=== PATIENT | female | born 1975 | race Caucasian/White ===

== ENCOUNTER 2016-09-26 07:00 | Day surgery (SDC) | payer OTHER ==
[2016-09-26] MEDS ORDERED: fentaNYL 100 MCG/2 ML INJ ONE (07:24)
[2016-09-26] MEDS ORDERED: MIDAZOLAM 2 MG/2 ML VIAL ONE (07:26)
[2016-09-26] MEDS ORDERED: PROMETHAZINE HCL 25 MG/ML INJ ONE (08:01)
[2016-09-26] MEDS ORDERED: BUPIVACAINE 0.5% 30 ML SDV ONE (08:50)
[2016-09-26] MEDS ORDERED: LIDOCAINE 1% 30 ML SDV ONE (08:50)
[2016-09-26] MEDS ORDERED: BUPIVACAINE 0.25% 30 ML SDV ONE (08:51)
[2016-09-26] MEDS ORDERED: ONDANSETRON 4 MG/2 ML VIAL ONE (09:10)
[2016-09-26] MEDS ORDERED: oxyCODONE IR 5 MG TAB PO PRN (09:39)
[2016-09-26] MEDS ORDERED: ONDANSETRON 4 MG/2 ML VIAL IVP PRN (09:40)
[2016-09-26] MEDS ORDERED: ACETAMINOPHEN 325 MG TAB PO PRN (09:40)
[2016-09-29 12:11] LABS: FINAL DIAGNOSIS See Comments; MICROSCOPIC DESCRIPTION See Comments; SPECIAL STUDIES See Comments
[2016-10-03 17:12] LABS: BANDING METHODS See Comments; INTERPRETATION See Comments
== END 2016-09-26 10:25 | disposition home or self-care (01) ==
LOC: FIMAGING 07:00
PROVIDERS: ATTEND Internal Medicine Hematology & Oncology
PROC: 07DR3ZX Extraction of Iliac Bone Marrow, Percutaneous Approach, Diagnostic (ICD-10-PCS; principal; 2016-09-26 09:15)
DX: C92.10 Chronic myeloid leukemia, BCR/ABL-positive, not having achieved remission (principal)
CPT/HCPCS: 85060-90; 88184-90; 88185-91; 88237-90; 88262-90; J2250; J2405; J2550; J3010

== ENCOUNTER 2017-01-11 09:59 | Inpatient (IN) | payer OTHER ==
--- NOTE | 2017-01-11 10:27 | CPEKG ---
Heart Rate: 84 RR Interval: 714 P-R Interval: 180 QRSD Interval: 82 QT Interval: 384 QTC Interval: 454 P [place]: 24 QRS [place]: 15 T Wave [place]: 36 EKG Severity - NORMAL ECG - EKG Impression: SINUS RHYTHM Electronically Signed By: Kavin Mensah 11-Jan-2017 15:33:43
[2017-01-11] MEDS ORDERED: HYDROmorphONE/DILAUDID 1 MG/ML SYR IVP ONE ×2 (11:09→13:35)
[2017-01-11 11:13] LABS: % IMMATURE GRANULYOCYTES 0.5 % (0.0-1.1); ABSOLUTE IMMATURE GRANULOCYTES 0.03 10^3/uL (0.00-0.10); ADD DIFF? NO; ADD MORPH? NO; ADD SCAN? NO; ATYPICAL LYMPHOCYTE FLAG 10 (0-99); FRAGMENT RBC FLAG 0 (0-99); HEMATOCRIT 36.1 % (38.0-47.0); HEMOGLOBIN 12.3 g/dL (12.6-16.3); LEFT SHIFT FLG 0 (0-99); LIPEMIA HEMOLYSIS FLAG 90 (0-99); MEAN CELL HEMOGLOBIN 31.3 pg (27.9-34.1); MEAN CELL HEMOGLOBIN CONCENTR. 34.1 g/dL (32.4-36.7); MEAN CELL VOLUME 91.9 fL (81.5-99.8); MEAN PLATELET VOLUME 9.6 fL (8.7-11.7); PLATELET CLUMPS FLAG 0 (0-99); PLATELET COUNT 159 10^3/uL (150-400); RED BLOOD CELL COUNT 3.93 10^6/uL (4.18-5.33); RED CELL DISTRIBUTION WIDTH 14.6 % (11.5-15.2)
[2017-01-11] MEDS ORDERED: ONDANSETRON 4 MG/2 ML VIAL ONE (11:16)
[2017-01-11] MEDS ORDERED: ONDANSETRON 4 MG/2 ML VIAL IVP ONE (11:17)
[2017-01-11 11:20] LABS: ANION GAP 10 mEq/L (8-16); CALCIUM 8.7 mg/dL (8.5-10.4); CARBON DIOXIDE 20 mEq/l (22-31); CHLORIDE 111 mEq/L (97-110); CREATININE 0.7 mg/dL (0.6-1.0); GLOMERULAR FILTRATION RATE > 60; GLUCOSE 90 mg/dL (70-100); SODIUM 141 mEq/L (134-144)
[2017-01-11] MEDS ORDERED: IOPAMIDOL (ISOVUE 370) 100 ML BTL IV ONE (11:54)
[2017-01-11 13:30] LABS: ALBUMIN 3.6 g/dL (3.5-5.0); BILIRUBIN,TOTAL 1.3 mg/dL (0.1-1.4); BILIRUBIN-CONJUGATED 0.3 mg/dL (0.0-0.5); TOTAL PROTEIN 6.7 g/dL (6.3-8.2)
[2017-01-11] MEDS ORDERED: ALPRAZolam 0.5 MG TAB PO PRN (14:22)
[2017-01-11] MEDS ORDERED: FUROSEMIDE 40 MG/4 ML VIAL IVP ONE ×2 (14:22→20:24)
[2017-01-11] MEDS ORDERED: ACETAMINOPHEN 325 MG TAB PO PRN (14:25)
[2017-01-11] MEDS ORDERED: ONDANSETRON 4 MG/2 ML VIAL IVP PRN (14:25)
[2017-01-11] MEDS ORDERED: ONDANSETRON DISINTEGRATING 4 MG TAB PO PRN (14:25)
--- NOTE | 2017-01-11 14:28 | EDPHY ---
H & P Time Seen by Provider: 01/11/17 10:50 HPI/ROS: CHIEF COMPLAINT: Shortness of breath, abdominal pain HISTORY OF PRESENT ILLNESS: 41-year-old female presents to the emergency department complaining of shortness of breath and upper abdominal pain that began 2 days ago. 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 Hills. The patient noted mild symptoms starting on Thursday. She states that they were much worse yesterday. She has a prescription for Lasix and took extra 20 mg of Lasix yesterday and today without relief. She notes that she does have good urine output with this medication. She has not noticed any fevers or chills. No cough. No back pain. The patient feels extremely anxious. No rash. No reported trauma. Normal bowel movement yesterday. History of partial hysterectomy REVIEW OF SYSTEMS: Constitutional: No fever, no chills. Eyes: No double or blurry vision. ENT: No sore throat. Respiratory: Shortness of breath, no cough Cardiac: No chest pain. Gastrointestinal: Abdominal pain as above. No vomiting or diarrhea Genitourinary: No dysuria. Musculoskeletal: No neck or back pain. Skin: No rashes. Neurological: No headache. Past Medical/Surgical History: CML, anxiety, depression, back surgery, partial hysterectomy Social History: . Works as a Pharmacist Smoking Status: Never smoked Physical Exam: General Appearance: Alert, no distress. Afebrile. Eyes: Pupils equal and round. Extraocular motions are all intact. ENT: Mouth: Mucous membranes moist. Respiratory: No wheezing, rhonchi, or rales, lungs are clear to auscultation. Cardiovascular: Regular rate and rhythm. Gastrointestinal: Abdomen is obese and soft. She has tenderness with palpation in the left and the right upper quadrant. Some mild tenderness in the epigastric area as well. There is no rebound, guarding or masses noted. No CVA tenderness bilaterally. Neurological: Alert and oriented x 3, cranial nerves II through XII grossly intact Skin: Warm and dry, no rashes. Musculoskeletal: Nontender to palpate along the cervical, thoracic or lumbar spine. Neck is supple. Extremities: Full range of motion and no peripheral edema. Psychiatric: Patient is oriented X 3, there is no agitation. Constitutional: Initial Vital Signs Temperature (C) 36.8 C 01/11/17 10:01 Heart Rate 84 01/11/17 10:01 Respiratory Rate 16 01/11/17 10:01 Blood Pressure 158/92 H 01/11/17 10:01 O2 Sat (%) 97 01/11/17 10:01 O2 Delivery Mode Nasal Cannula O2 (L/minute) 3 Allergies/Adverse Reactions: No Allergies [NKA] Allergy (Verified 06/12/13 09:41) Home Medications: Medication Instructions Recorded DULoxetine [Cymbalta 60 MG (*)] 60 mg PO DAILY06 04/30/12 Liothyronine Sodium [Cytomel 5 mcg 5 mcg PO DAILY06 04/30/12 (*)] Canagliflozin [Invokana] 100 mg PO DAILY 09/25/16 Levothyroxine [Synthroid 150 mcg 150 mcg PO DAILY06 09/25/16 (*)] oxyCODONE IR [Oxycodone Ir (*)] 5 mg PO QID PRN 09/25/16 ALPRAZolam [Xanax 0.5 MG (*)] 0.5 mg PO PRN PRN 01/11/17 Dasatinib [Sprycel] 100 mg PO DAILY 01/11/17 Furosemide [Lasix 20 MG (*)] 20 mg PO DAILY 01/11/17 Herbals/Supplements -Info Only 1 ea PO DAILY 01/11/17 Medical Decision Making - Diagnostics Imaging Results: Imaging Impressions Abdomen CT 01/11/17 11:20 Impression: 1. Bilateral pleural effusions, with bibasilar areas of compressive subsegmental atelectasis. There are also areas of bilateral groundglass attenuation, which may represent alveolar edema consistent with fluid overload- CHF. The possibility of underlying inflammatory or infectious pneumonitis cannot be excluded. 2. There is no CT evidence of pulmonary artery thromboemboli. 3. There is some tiny subpleural nodules, as above indicated. These should be reevaluated in 6 months in this patient with CML. CONTRAST-ENHANCED CT SCAN OF THE ABDOMEN: The liver is enlarged, measuring 20.9 cm cephalocaudal diameter and there is some mild generalized steatosis. There is no focal hepatic mass. Numerous gallstones are present within the gallbladder , and there is trace pericholecystic fluid. The spleen is enlarged, measuring 14.7 x 6.1 x 13.8 cm. There is no focal splenic lesion. The pancreatic contour is normal. The adrenal glands are normal. There is bilateral symmetrical renal function. There is no hydronephrosis or perinephric inflammation. The abdominal aorta and the IVC are normal in caliber. The splenic vein, superior mesenteric vein, and the main portal vein are patent. There is no free air. There is no pathologically-enlarged retroperitoneal or mesenteric adenopathy. Moderate obesity is noted. There is mild constipation. There is no abnormal small bowel dilatation. CONTRAST-ENHANCED CT SCAN OF THE PELVIS: There is a 3.5 x 3.2 x 3.3 cm left ovarian cyst with a Hounsfield unit measurement of 1. There is some free fluid in the pelvic cul-de-sac. The uterus is absent. The urinary bladder is mildly distended. There is no adenopathy. Skeletal System: There is no osteolytic or blastic lesion. The vertebral body heights are maintained. Impression: 1. Hepatosplenomegaly. 2. Cholelithiasis with trace pericholecystic fluid, and no bile duct dilatation. 3. There is a 3.5 cm left ovarian cyst with some free fluid in the pelvic cul-de -sac. 4. Status post hysterectomy. Findings were discussed with HARSHAL MILLS PA-C at 12:52, on 01/11/2017. Chest/Thorax CTA 01/11/17 11:20 Impression: 1. Bilateral pleural effusions, with bibasilar areas of compressive subsegmental atelectasis. There are also areas of bilateral groundglass attenuation, which may represent alveolar edema consistent with fluid overload- CHF. The possibility of underlying inflammatory or infectious pneumonitis cannot be excluded. 2. There is no CT evidence of pulmonary artery thromboemboli. 3. There is some tiny subpleural nodules, as above indicated. These should be reevaluated in 6 months in this patient with CML. CONTRAST-ENHANCED CT SCAN OF THE ABDOMEN: The liver is enlarged, measuring 20.9 cm cephalocaudal diameter and there is some mild generalized steatosis. There is no focal hepatic mass. Numerous gallstones are present within the gallbladder , and there is trace pericholecystic fluid. The spleen is enlarged, measuring 14.7 x 6.1 x 13.8 cm. There is no focal splenic lesion. The pancreatic contour is normal. The adrenal glands are normal. There is bilateral symmetrical renal function. There is no hydronephrosis or perinephric inflammation. The abdominal aorta and the IVC are normal in caliber. The splenic vein, superior mesenteric vein, and the main portal vein are patent. There is no free air. There is no pathologically-enlarged retroperitoneal or mesenteric adenopathy. Moderate obesity is noted. There is mild constipation. There is no abnormal small bowel dilatation. CONTRAST-ENHANCED CT SCAN OF THE PELVIS: There is a 3.5 x 3.2 x 3.3 cm left ovarian cyst with a Hounsfield unit measurement of 1. There is some free fluid in the pelvic cul-de-sac. The uterus is absent. The urinary bladder is mildly distended. There is no adenopathy. Skeletal System: There is no osteolytic or blastic lesion. The vertebral body heights are maintained. Impression: 1. Hepatosplenomegaly. 2. Cholelithiasis with trace pericholecystic fluid, and no bile duct dilatation. 3. There is a 3.5 cm left ovarian cyst with some free fluid in the pelvic cul-de -sac. 4. Status post hysterectomy. Findings were discussed with HARSHAL MILLS PA-C at 12:52, on 01/11/2017. Imaging: Discussed imaging studies w/ informal waiter/waitress Radiologist ED Course/Re-evaluation: 41-year-old female with a history of CML presents to the emergency department feeling short of breath and complaining of upper abdominal pain. I explained to the patient that I was concerned about possible pulmonary embolism. I discussed the pros and cons of CT imaging of her chest including radiation exposure the patient agrees. Given her history of CML as well as her abdominal pain, I was concerned about possible hepatosplenomegaly. CT imaging of the abdomen and pelvis was also ordered. CT pulmonary angiogram reveals no evidence of pulmonary embolism. She does have bilateral pleural effusions likely related to fluid overload. CT scan of the abdomen pelvis with IV contrast reveals enlarged liver and spleen. No free fluid in the pelvis. She does have a 3 and 0.5 cm left ovarian cyst. Enlarged lymph nodes are noted. Radiologist recommends follow-up CT scan in 6 months. This was explained to the patient. The case was discussed with Dr. Kavin Mensah, supervising physician, who did not directly evaluate the patient but agrees with treatment and plan. Patient will be admitted to cancer care floor by Dr. Ángel Dyer. Patient was given 60 mg of IV Lasix in the emergency department. Differential Diagnosis: Shortness of breath including but not limited to pulmonary infectious process, COPD, asthma, pulmonary embolus and congestive heart failure. - Data Points Laboratory Results: Laboratory Results 01/11/17 10:20 01/11/17 10:20 01/11/17 01/11/17 01/11/17 11:10 10:20 10:20 WBC RBC Hgb POC Hgb 12.2 gm/dL L gm/dL (12.6-16.3) Hct POC Hct 36 % L % (38-47) MCV MCH MCHC RDW Plt Count MPV Neut % (Auto) Lymph % (Auto) [place] % (Auto) Eos % (Auto) Baso % (Auto) Nucleat RBC Rel Count Absolute Neuts (auto) Absolute Lymphs (auto) Absolute Monos (auto) Absolute Eos (auto) Absolute Basos (auto) Absolute Nucleated RBC Immature Gran % Immature Gran # POC Sodium 141 mEq/L mEq/L (134-144) Sodium 141 mEq/L mEq/L (134-144) POC Potassium 4.4 mEq/L mEq/L (3.3-5.0) Potassium 4.0 mEq/L mEq/L (3.5-5.2) POC Chloride 106 mEq/L mEq/L (97-110) Chloride 111 mEq/L H mEq/L (97-110) Carbon Dioxide 20 mEq/l L mEq/l (22-31) Anion Gap 10 mEq/L mEq/L (8-16) POC BUN 15 mg/dL mg/dL (7-23) BUN 14 mg/dL mg/dL (7-23) Creatinine 0.7 mg/dL mg/dL (0.6-1.0) POC Creatinine 0.6 mg/dL mg/dL (0.6-1.0) Estimated GFR > 60 Glucose 90 mg/dL mg/dL (70-100) POC Glucose 86 mg/dL mg/dL (70-100) Calcium 8.7 mg/dL mg/dL (8.5-10.4) Total Bilirubin 1.3 mg/dL mg/dL (0.1-1.4) Conjugated Bilirubin 0.3 mg/dL mg/dL (0.0-0.5) Unconjugated Bilirubin 1.0 mg/dL mg/dL (0.0-1.1) AST 23 IU/L IU/L (14-46) ALT 29 IU/L IU/L (9-52) Alkaline Phosphatase 72 IU/L IU/L (38-126) Total Protein 6.7 g/dL g/dL (6.3-8.2) Albumin 3.6 g/dL g/dL (3.5-5.0) Lipase 59.0 IU/L IU/L (23-300) 01/11/17 10:20 WBC 5.78 10^3/uL 10^3/uL (3.80-9.50) RBC 3.93 10^6/uL L 10^6/uL (4.18-5.33) Hgb 12.3 g/dL L g/dL (12.6-16.3) POC Hgb Hct 36.1 % L % (38.0-47.0) POC Hct MCV 91.9 fL fL (81.5-99.8) MCH 31.3 pg pg (27.9-34.1) MCHC 34.1 g/dL g/dL (32.4-36.7) RDW 14.6 % % (11.5-15.2) Plt Count 159 10^3/uL 10^3/uL (150-400) MPV 9.6 fL fL (8.7-11.7) Neut % (Auto) 77.8 % H % (39.3-74.2) Lymph % (Auto) 15.2 % % (15.0-45.0) [place] % (Auto) 5.0 % % (4.5-13.0) Eos % (Auto) 1.2 % % (0.6-7.6) Baso % (Auto) 0.3 % % (0.3-1.7) Nucleat RBC Rel Count 0.0 % % (0.0-0.2) Absolute Neuts (auto) 4.49 10^3/uL 10^3/uL (1.70-6.50) Absolute Lymphs (auto) 0.88 10^3/uL L 10^3/uL (1.00-3.00) Absolute Monos (auto) 0.29 10^3/uL L 10^3/uL (0.30-0.80) Absolute Eos (auto) 0.07 10^3/uL 10^3/uL (0.03-0.40) Absolute Basos (auto) 0.02 10^3/uL 10^3/uL (0.02-0.10) Absolute Nucleated RBC 0.00 10^3/uL 10^3/uL (0-0.01) Immature Gran % 0.5 % % (0.0-1.1) Immature Gran # 0.03 10^3/uL 10^3/uL (0.00-0.10) POC Sodium Sodium POC Potassium Potassium POC Chloride Chloride Carbon Dioxide Anion Gap POC BUN BUN Creatinine POC Creatinine Estimated GFR Glucose POC Glucose Calcium Total Bilirubin Conjugated Bilirubin Unconjugated Bilirubin AST ALT Alkaline Phosphatase Total Protein Albumin Lipase Medications Given: Discontinued Medications Hydromorphone HCl (Dilaudid) 0.5 mg IVP EDNOW ONE Stop: 01/11/17 11:10 Last Admin: 01/11/17 11:14 Dose: 0.5 mg Hydromorphone HCl (Dilaudid) 1 mg IVP EDNOW ONE Stop: 01/11/17 13:36 Last Admin: 01/11/17 13:40 Dose: 1 mg Ondansetron HCl (Zofran) 4 mg IVP EDNOW ONE Stop: 01/11/17 11:18 Last Admin: 01/11/17 11:18 Dose: 4 mg Point of Care Test Results: 01/11/17 11:10 POC Sodium 141 POC Potassium 4.4 POC Chloride 106 POC BUN 15 POC Creatinine 0.6 POC Glucose 86 Departure - Departure Disposition: [facility] Inpatient Acute Clinical Impression: Pleural effusion, CML (chronic myelocytic leukemia) Abdominal pain Qualifiers: Abdominal location: upper abdomen, unspecified Qualified Code(s): R10.10 - Upper abdominal pain, unspecified Condition: Good
--- NOTE | 2017-01-11 15:10 | GHP ---
[f rep st] HISTORY AND PHYSICAL DATE OF ADMISSION: 01/11/2017 HISTORY OF PRESENT ILLNESS: The patient is a pleasant 41-year-old female, with a diagnosis of CML, which was made in September of this year. She presents with lower extremity swelling, dyspnea on exerti on and a bandlike tightness around her chest. She takes dasatinib, of which one known side effect i s edema and 3rd spacing. She has been taking some p.r.n. Lasix. She recently traveled to [place] on a family trip where she ate out frequently, although per her history, not more frequently than u yessica. She has not had hemoptysis or shortness of breath. She has an early satiety with left-sided pain. She still has her gallbladder. She has had no biliary colic type symptoms. She had orthopnea yeste rday. REVIEW OF SYSTEMS: Complete 10-point review of systems conducted negative as noted in the HPI. PAST MEDICAL HISTORY: Hysterectomy, hemorrhoids, CML SOCIAL HISTORY: She is a pharmacist, lives in [place], 2 kids, . Originally from [facility]. No cigarettes, rare alcohol. FAMILY HISTORY: Notable for diabetes in her mother. ALLERGIES: No known drug allergies. HOME MEDICATIONS: Furosemide, alprazolam, Invokana, dasatinib, fluoxetine, levothyroxine, liothyron ine oxycodone. PHYSICAL EXAMINATION: VITAL SIGNS: Temp 36.8, blood pressure 158/92, pulse 84, breathing 16 times a minute, 97% on room air. GENERAL: No acute distress. Sclerae anicteric. Oropharynx clear. Muc ous membranes are moist. NECK: Supple. No lymphadenopathy or JVD. LUNGS: Clear to auscultation bilaterally. HEART: S1, S2. ABDOMEN: Soft. There is no rebound or guarding. There is no Platt sign. LOWER EXTREMITIES: Show 1+ edema. There is also presacral edema. Calves are nontender. S KIN: Without rash. NEUROLOGIC: Exam is nonfocal. LABORATORIES: White count 5.8, hematocrit 36.1, platelets are 159,000. Sodium 141, potassium 4.0, chloride 111, bicarb 20, BUN 14, creatinine 0.7, calcium 8.7. LFTs normal. Lipase normal. Albumin normal. EKG interpreted by me, shows sinus rhythm at 84 with normal axis and intervals and no ST o r T-wave changes. This has been a normal EKG. CT of the chest, abdomen and pelvis shows no pulmona ry embolism, moderate bilateral pleural effusions. No focal infiltrates. She also has bilateral gr ound-glass attenuation, subpleural nodules. She also has hepatosplenomegaly, cholelithiasis with tr belkis pericholecystic fluid. No dilation. Status post hysterectomy and 3.5 cm left ovarian cyst. I discussed the case with Rosario Rose in the emergency department. ASSESSMENT AND PLAN: A 41-year-old female, who presents with anasarca. 1. Anasarca. I suspect this is secondary to her dasatinib. The patient has moderate obesity, so m ay have some underlying pulmonary hypertension on the basis it should exacerbate this. I do not thi nk this represents milan congestive heart failure, and she has a benign abdominal exam. 2. To that end, I will diurese her with 60 mg of IV Lasix today, 40 again tonight and then 40 b.i.d . tomorrow. Hold her p.o. Lasix. Will check an echocardiogram and a TSH. 3. Chronic myeloid leukemia. She appears to be responding well to therapy. 4. Hyperchloremia. Will follow. 5. Prophylaxis. Pharmacologic prophylaxis indicated. Start low-molecular heparin. DISPOSITION: Observation status. /[id number]/MODL
[2017-01-11] MEDS ORDERED: LACTULOSE 20 GM/30 ML UDCUP PO PRN (15:34)
[2017-01-11] MEDS ORDERED: DULoxetine 60 MG CAP PO SCH (15:34)
[2017-01-11] MEDS ORDERED: POLYETHYLENE GLYCOL 3350 17 GM PKT PO PRN (15:34)
[2017-01-11] MEDS ORDERED: BISACODYL 10 MG SUPP PR PRN (15:34)
[2017-01-11] MEDS ORDERED: MAGNESIUM HYDROXIDE 30 ML UDCUP PO PRN (15:34)
[2017-01-11] MEDS: DULoxetine 60 MG CAP PO SCH (16:37)
[2017-01-11] MEDS: FUROSEMIDE 40 MG/4 ML VIAL IVP SCH (16:37)
[2017-01-11] MEDS: IBUPROFEN 600 MG TAB PO PRN (18:09)
[2017-01-11] MEDS: oxyCODONE IR 5 MG TAB PO PRN (20:36)
[2017-01-11] MEDS: SENNOSIDES/DOCUSATE SODIUM TAB PO SCH (20:36)
[2017-01-12] MEDS: IBUPROFEN 600 MG TAB PO PRN ×2 (04:48→18:11)
[2017-01-12 05:29] LABS: % IMMATURE GRANULYOCYTES 0.5 % (0.0-1.1); ABSOLUTE IMMATURE GRANULOCYTES 0.02 10^3/uL (0.00-0.10); ADD DIFF? NO; ADD MORPH? NO; ADD SCAN? NO; ATYPICAL LYMPHOCYTE FLAG 0 (0-99); FRAGMENT RBC FLAG 0 (0-99); HEMATOCRIT 34.3 % (38.0-47.0); HEMOGLOBIN 11.8 g/dL (12.6-16.3); LEFT SHIFT FLG 0 (0-99); LIPEMIA HEMOLYSIS FLAG 90 (0-99); MEAN CELL HEMOGLOBIN CONCENTR. 34.4 g/dL (32.4-36.7); PLATELET CLUMPS FLAG 0 (0-99); PLATELET COUNT 140 10^3/uL (150-400); RED BLOOD CELL COUNT 3.69 10^6/uL (4.18-5.33); RED CELL DISTRIBUTION WIDTH 14.6 % (11.5-15.2)
[2017-01-12 05:37] LABS: ANION GAP 10 mEq/L (8-16); CALCIUM 8.6 mg/dL (8.5-10.4); CARBON DIOXIDE 25 mEq/l (22-31); CHLORIDE 105 mEq/L (97-110); CREATININE 0.7 mg/dL (0.6-1.0); GLOMERULAR FILTRATION RATE > 60; GLUCOSE 80 mg/dL (70-100); POTASSIUM 3.8 mEq/L (3.5-5.2); SODIUM 140 mEq/L (134-144)
[2017-01-12] MEDS: LEVOTHYROXINE 150 MCG TAB PO SCH (05:52)
[2017-01-12] MEDS: oxyCODONE IR 5 MG TAB PO PRN (05:52)
[2017-01-12] MEDS: LIOTHYRONINE SODIUM 5 MCG TAB PO SCH (05:52)
[2017-01-12] MEDS: DULoxetine 60 MG CAP PO SCH (05:53)
[2017-01-12] MEDS ORDERED: oxyCODONE IR 5 MG TAB PO PRN (05:53)
[2017-01-12] MEDS ORDERED: DULoxetine 60 MG CAP PO SCH (06:00)
[2017-01-12] MEDS ORDERED: KETOROLAC 30 MG/1 ML SDV IVP PRN (06:41)
[2017-01-12] MEDS ORDERED: ACET/CAFFEINE/BUTA FIORICET 1 EACH TAB PO PRN (06:42)
[2017-01-12] MEDS: SENNOSIDES/DOCUSATE SODIUM TAB PO SCH ×2 (07:49→21:12)
[2017-01-12] MEDS: ENOXAPARIN 40 MG/0.4 ML SYR SC SCH (07:49)
[2017-01-12] MEDS: FUROSEMIDE 40 MG/4 ML VIAL IVP SCH ×2 (07:49→15:17)
[2017-01-12] MEDS ORDERED: Dasatinib [Sprycel] 100 MG PO SCH (09:00)
[2017-01-12] MEDS ORDERED: Herbals/Supplements -Info Only PO SCH (09:00)
[2017-01-12] MEDS ORDERED: Canagliflozin [Invokana] 100 MG PO SCH (09:00)
--- NOTE | 2017-01-12 11:42 | GCON ---
[f rep st] CONSULTATION INPATIENT HEMATOLOGY CONSULTATION DATE OF CONSULTATION: 01/12/2017 REFERRING PHYSICIAN: Ángel Dyer MD REASON FOR CONSULTATION: Pulmonary edema and pleural effusions. HISTORY OF PRESENT ILLNESS: The patient is a 41-year-old woman with chronic phase chronic myeloid l eukemia. She is well known to me from clinic. She presented a little more than 3 months ago with abigail kocytosis and splenomegaly. A bone marrow biopsy was consistent with chronic myeloid leukemia, and t ranslocation 9;22 was demonstrated, which confirmed the diagnosis. She had an intermediate Sokal sco re. She was started on dasatinib 100 mg daily. Within a month, she was in a hematologic remission, w ith complete normalization of her blood counts. At the 3 month ramon in early December, her BCR-ABL PCR w as 16%. She was having some mild peripheral edema due to the dasatinib but no other problems. Over the weekend, she developed fairly acute onset of shortness of breath and orthopnea. She did not have any additional peripheral edema. She was ultimately seen in the emergency department where she was found to be hypoxic. CT angiogram showed bilateral pleural effusion and some evidence of CHF. T here was no evidence of pulmonary emboli. Her spleen was mildly enlarged at 14.7 cm, though it was 2 0 cm on diagnosis on an outside film. She has been diuresed overnight, and the dasatinib has been he ld. She is feeling better today. PAST MEDICAL HISTORY: Otherwise unremarkable. MEDICATIONS: Currently include Xanax, Cymbalta, Lovenox, Lasix, Toradol, lactulose, Synthroid, Cyto emil, Zofran. ALLERGIES: She has no known drug allergies. FAMILY HISTORY: Noncontributory. SOCIAL HISTORY: She is a nonsmoker, nondrinker. She lives with her family. 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 REVIEW OF SYSTEMS: Aside from pertinent positives in the HPI, a 14-point review is negative. PHYSICAL EXAMINATION: VITAL SIGNS: Her temperature is 36.6, blood pressure 127/89, heart rate 61, o xygen saturation 98% on 3 L. GENERAL: She was breathing comfortably, no acute distress. EYES: Sclera e anicteric. MOUTH AND THROAT: Oropharynx was clear. NECK: Supple, without lymphadenopathy. LUNGS: C lear to auscultation bilaterally. CARDIAC: Regular rate and rhythm. No murmurs, gallops or rubs. ABD OMEN: Normoactive bowel sounds, nontender. EXTREMITIES: 1+ edema of the feet bilaterally. NEUROLOGIC : Alert and oriented x3. Strength and sensation were grossly intact. LABORATORY DATA: White count was 4.05, hemoglobin 11.8, platelets were 140. Chemistry panel, includ ing LFTs and renal function, was totally normal. An echocardiogram is pending. ASSESSMENT: This is a 41-year-old woman with chronic phase chronic myeloid leukemia, who is having a good response hematologically to dasatinib. She now presents with sudden onset pulmonary edema and small bilateral pleural effusion. These are almost certainly side-effects of the dasatinib. RECOMMENDATIONS: The drug will be held until her symptoms have resolved. We discussed then starting her on a lower dose (70 mg daily) versus changing her to a different CML medication, such as niloti nib. She would prefer to try the dasatinib again, which I think is reasonable. She does understand t hat if she is still not able to tolerate it or if she is not hitting the appropriate hematologic mil estones at 6 months, we would need to change it in any event. She is being diuresed appropriately. I do not think the effusions are large enough to tap and are no t causing any symptoms. I do not think a thoracentesis will be necessary from a diagnostic point of view. Thank you for this consultation. I will continue to follow the patient with you while she is in the hospital and will then make arrangements to see her in the outpatient setting when she is discharged . /[id number]/MODL
--- NOTE | 2017-01-12 14:40 | ECHO ---
[id number] + + [address] : : [place] [address] : : [phone] + + Adult Echocardiographic Report + + :Name: SWATI FLORES LStudy Date: 01/12/2017 09:40 AM BP: 127/89 mmHg : : Hospital Admission Number: [id number] Lo cation: 150: :: 1975 Gender: Female Height: 67 in : :Age: 41 yrs Race: WH Weight: 28 0 lb : :Reason For Study: pleural effusions; anasarca : : BSA: 2.3 m eters2 : :History: anasarca; cancer : + + MMode/2D Measurements \T\ Calculations IVSd: 1.1 cm RVDd: 3.3 cm FS: 31.7 % Ao root diam: LVPWd: 1.1 cm LVIDd: 5.2 cm EDV(Teich): 3.0 cm LVIDs: 3.5 cm 127.8 ml ESV(Teich): 51.9 ml EF(Teich): 59.4 % LVLd ap4: 9.0 cm SV(MOD-sp4): EDV(MOD-sp4): 96.0 ml 152.0 ml LVLs ap4: 7.4 cm ESV(MOD-sp4): 56.0 ml EF(MOD-sp4): 63.2 % Normal Measurement Values: + + :LVIDd (3.5-5.7cm) IVSd (0.6-1.1cm) LVPWd (0.6-1.1cm) Aortic Root (2.0-3.7cm)Left Atrium (1.5-4.0cm): :LV Vol(d) (76-115ml) LV Vol(s) (29-48ml) Ejec Fraction (50-65%)PV Wilbert (0.6- 1.2m/s) TV Wilbert (0.4-1.0m/s) : :MV E Wilbert (0.8-1.0m/s)MV A Wilbert (0.3-1.0m/s)LVOT Wilbert (0.7-1.2m/s) Asc Ao Wilbert ( 0.9-1.8m/s) : + + Doppler Measurements \T\ Calculations MV E max wilbert: Ao V2 max: LV V1 max: PA V2 max: 86.4 cm/sec 149.0 cm/sec 119.0 cm/sec 90.1 cm/sec MV A max wilbert: Ao max PG: LV V1 max PG: PA max P.6 cm/sec 8.9 mmHg 5.7 mmHg 3.2 mmHg MV E/A: 1.3 MV dec time: 0.18 sec TR max wilbert: 257.0 cm/sec TR max P.4 mmHg RAP systole: 10.0 mmHg RVSP(TR): 36.4 mmHg Left Ventricle The left ventricle is normal in size and function. There is normal left ventricular wall thickness. Ejection Fraction = 60-65%. No regional wall motion abnormalities noted. Right Ventricle The right ventricle is normal in size and function. Atria The left atrial size is normal. Right atrial size is normal. Mitral Valve The mitral valve is normal in structure and function. There is no mitral valve stenosis. There is trace mitral regurgitation. Tricuspid Valve The tricuspid valve is normal in structure and function. There is no tricuspid stenosis. There is trace to mild tricuspid regurgitation. Right ventricular systolic pressure is 36mmHg. Estimated RVSP is upper limits of normal. Aortic Valve The aortic valve is trileaflet. There is no aortic stenosis. Trace aortic regurgitation. Pulmonic Valve The pulmonic valve is not well visualized. Great Vessels The aortic root is normal size. Pericardium/Pleural There is no pericardial effusion. Conclusion A two-dimensional transthoracic echocardiogram with M-mode and Doppler was performed. The left ventricle is normal in size and function. Ejection Fraction = 60-65%. There is trace mitral regurgitation. There is trace to mild tricuspid regurgitation. Right ventricular systolic pressure is 36mmHg. Estimated RVSP is upper limits of normal. Trace aortic regurgitation. Final Reading Physician: Ambika Lugo signed on 01/12/2017 02:37 PM Ordering Physician: Ángel Dyer Performed By: Rosario Rhoades
--- NOTE | 2017-01-12 15:17 | HOSPPROG ---
Hospitalist Progress Note Assessment/Plan: 41-year-old female with CML presents with bilateral pleural effusion shortness of breath and peripheral edema believe secondary to dasatinib, chemotherapy for her CML. Patient new to me today -acute diastolic CHF with peripheral edema shortness of breath and hypoxemia. We have stopped the dasatinib and she has received additional doses of IV Lasix. I&Os currently negative and she is much improved. ECG personally reviewed by me is normal. CT of the chest shows no evidence of a pulmonary embolus but sub pleural nodules and bilateral pleural effusions with some alveolar edema consistent with decompensated diastolic CHF. CT of the abdomen reveals pericolic fluid without dilation or wall thickening and splenomegaly. The studies were personally reviewed by myself. -for mm subpleural nodules noted on chest CT. These will be followed as an outpatient. -plan: Patient should be changed to inpatient status due to the persistent hypoxemia and signs of fluid overload with peripheral edema and hypoxemia. She still has mild chest heaviness without signs of cardiac ischemia. She will require 1-2 more days of diuretic therapy to resolve the diastolic CHF. -case discussed with Dr. Anirudh Hills with Oncology. Time 45 minutes - Subjective: Reports a feeling of some chest heaviness without milan shortness of breath although she feels slightly short of breath with mild exertion. No nausea vomiting abdominal pain or fever Objective: Vital Signs Temp Pulse Resp BP Pulse Ox 36.9 C 60 20 130/83 H 97 01/12/17 11:58 01/12/17 11:58 01/12/17 11:58 01/12/17 11:58 01/12/17 11:58 Laboratory Results 01/12/17 04:58 01/12/17 04:58 01/11/17 01/12/17 01/13/17 05:59 05:59 05:59 Intake Total 1850 620 Output Total 3000 1300 Balance -1150 -680 - Time Spent With Patient Time Spent with Patient: greater than 35 minutes Time Spent with Patient: Greater than 35 minutes spent on this patients care, greater than 50% of time spent counseling, educating, and coordinating care regarding the above mentioned plan. - Pending Discharge Pending Discharge Within 24 Hours: Yes Pending Discharge Date: 01/13/17 Pending Discharge Time: 11:00 - Physical Exam Constitutional: no apparent distress Eyes: PERRL Ears, Nose, Mouth, Throat: moist mucous membranes Cardiovascular: regular rate and rhythym, no murmur, rub, or gallop Respiratory: reduced air movement, inspiratory crackles Gastrointestinal: normoactive bowel sounds, soft, non-tender abdomen, other ( Obesity noted) Genitourinary: no bladder fullness Skin: warm Musculoskeletal: generalized weakness, other (Trace to 1+ peripheral edema non tender. No signs of a DVT negative Homans sign) Neurologic: AAOx3, CN II-XII Intact ICD10 Worksheet Patient Problems: Problems Problem Status Onset Abdominal pain Acute CML (chronic myelocytic leukemia) Acute Pleural effusion Acute
[2017-01-13 05:27] LABS: % IMMATURE GRANULYOCYTES 0.2 % (0.0-1.1); ABSOLUTE IMMATURE GRANULOCYTES 0.01 10^3/uL (0.00-0.10); ADD DIFF? NO; ADD MORPH? NO; ADD SCAN? NO; ATYPICAL LYMPHOCYTE FLAG 0 (0-99); FRAGMENT RBC FLAG 0 (0-99); HEMATOCRIT 35.2 % (38.0-47.0); HEMOGLOBIN 12.1 g/dL (12.6-16.3); LEFT SHIFT FLG 0 (0-99); LIPEMIA HEMOLYSIS FLAG 90 (0-99); MEAN CELL HEMOGLOBIN 31.6 pg (27.9-34.1); MEAN CELL HEMOGLOBIN CONCENTR. 34.4 g/dL (32.4-36.7); MEAN CELL VOLUME 91.9 fL (81.5-99.8); MEAN PLATELET VOLUME 9.1 fL (8.7-11.7); PLATELET CLUMPS FLAG 10 (0-99); PLATELET COUNT 166 10^3/uL (150-400); RED BLOOD CELL COUNT 3.83 10^6/uL (4.18-5.33); RED CELL DISTRIBUTION WIDTH 14.3 % (11.5-15.2)
[2017-01-13 05:40] LABS: ANION GAP 11 mEq/L (8-16); CALCIUM 8.5 mg/dL (8.5-10.4); CARBON DIOXIDE 26 mEq/l (22-31); CHLORIDE 104 mEq/L (97-110); CREATININE 0.7 mg/dL (0.6-1.0); GLOMERULAR FILTRATION RATE > 60; GLUCOSE 83 mg/dL (70-100); POTASSIUM 3.6 mEq/L (3.5-5.2); SODIUM 141 mEq/L (134-144)
[2017-01-13] MEDS: LEVOTHYROXINE 150 MCG TAB PO SCH (06:03)
[2017-01-13] MEDS: LIOTHYRONINE SODIUM 5 MCG TAB PO SCH (06:04)
[2017-01-13] MEDS: DULoxetine 60 MG CAP PO SCH (06:04)
[2017-01-13 08:41] VITALS: BP 145/88; PULSE 69; RESP 16; TEMP 98.2; O2SAT 91
[2017-01-13] MEDS: IBUPROFEN 600 MG TAB PO PRN (10:02)
[2017-01-13] MEDS: FUROSEMIDE 40 MG/4 ML VIAL IVP SCH (10:02)
[2017-01-13] MEDS: SENNOSIDES/DOCUSATE SODIUM TAB PO SCH (10:03)
[2017-01-13] MEDS: ENOXAPARIN 40 MG/0.4 ML SYR SC SCH (10:07)
--- NOTE | 2017-01-13 13:50 | SOAPPROG ---
SOAP Progress Note Assessment/Plan: Assessment: 1. CML in chronic phase 2. Pulmonary edema and pleural effusions due to dasatinib pt clinically improved after diuresis and stopping the dasatinib. Plan: - will restart dasatinib at lower dose (70 mg daily) - pt to f/u with me in 3 weeks - pt understands to call if she develops recurrent dyspnea or other problems. 01/13/17 13:49 Subjective: feels much better. Objective: exam: appears well lungs CTAB Vital Signs Temp Pulse Resp BP Pulse Ox 36.8 C 69 16 145/88 H 91 L 01/13/17 08:38 01/13/17 08:38 01/13/17 08:38 01/13/17 08:38 01/13/17 08:38 01/12/17 01/13/17 01/14/17 05:59 05:59 05:59 Output Total 1700 Balance -1700 ICD10 Worksheet Patient Problems: Problems Problem Status Onset Abdominal pain Acute CML (chronic myelocytic leukemia) Acute Pleural effusion Acute
--- NOTE | 2017-01-13 15:28 | GDS ---
[f rep st] DISCHARGE SUMMARY KNOWN ACUTE DIAGNOSES ON THIS ADMISSION: 1. Acute congestive heart failure with diastolic dysfunction, now fully compensated. 2. Chronic phase chronic myeloid leukemia under chemotherapeutic treatment. 3. Subpleural pulmonary nodules noted on CT scan; recommended followup in 4-6 months. CONSULTATION: Oncology. PROCEDURES: 1. CTA of the chest and thorax showing bilateral pleural effusions with no evidence of a pulmonary embolus; tiny subpleural nodules were noted. 2. Echocardiogram showing an EF of 60% to 65%. RVSP is the upper limits of normal. 3. Head CT: Normal brain. No intracranial hemorrhage, mass, or swelling. HOSPITAL COURSE: A 41-year-old female with known chronic myeloid leukemia who presented with dyspne a on exertion and bandlike tightness in the chest. She was noted to have significant peripheral holland ma and bilateral pleural effusions. She was diuresed with increasing doses of Lasix IV and diuresed nicely 3-4 L by I and O. A weight will be checked upon discharge. Echocardiogram showed good LV f unction and no significant valvular dysfunction. TSH was normal. The development of the edema was felt to be secondary to dasatinib, a chemotherapeutic agent for her chronic myeloid leukemia. The dosage of the medication was decreased by consultation of Oncology. She diuresed nicely and felt improved. There were no signs of cardiac ischemia. DISCHARGE MEDICATIONS: These will be essentially the same as her original medications. Changed medications will be Lasix, which will be increased from 20 mg a day to 20 mg b.i.d. also ch nury in the dasatinib will be from 100 mg a day to 70 mg a day. Her usual medications are as follows: Xanax 0.5 mg p.r.n. oxycodone IR 5 mg p.o. q.i.d. p.r.n., Syn throid 150 mcg daily, Cytomel 5 mcg daily, Cymbalta 60 mg daily, and Invokana 100 mg daily. PLAN: Patient is discharged to home on a salt-restricted diet. She has been instructed to increase her dosage of Lasix until further advised by Oncology. She will follow up with oncology in -2 ks. This discharge required 45 minutes, including discussion with Oncology and with the patient to jada stewart the information. /[id number]/MODL
== END 2017-01-13 15:15 | disposition home or self-care (01) | DRG 292 ==
LOC: F1N 15:08 → OBSVTOIN 01-13 09:37
PROVIDERS: ADMIT Internal Medicine; ATTEND Internal Medicine Pulmonary Disease
DX: I50.31 Acute diastolic (congestive) heart failure (principal); C92.10 Chronic myeloid leukemia, BCR/ABL-positive, not having achieved remission; E87.8 Other disorders of electrolyte and fluid balance, not elsewhere classified; T45.1X5A Adverse effect of antineoplastic and immunosuppressive drugs, initial encounter; R91.1 Solitary pulmonary nodule
CPT/HCPCS: 82947-QW; 96374; G0378; J1170; J1650; J1885; J1940; J2405; Q9967

== ENCOUNTER 2017-05-17 17:41 | Emergency (ER) | payer OTHER ==
[2017-05-17 17:47] VITALS: O2SAT 97
--- NOTE | 2017-05-17 17:49 | EDPHY ---
HPI/HX/ROS/PE/MDM Narrative: CHIEF COMPLAINT: Headache, mental fogginess HPI: The patient is a 41 y/o female with a history of CML complaining of a headache and feeling faint. She was admitted in December, 4 months ago, for an edema related to the CML. She started taking Invokana in February and has since experienced headaches, forgetfulness, inability to focus, and weight gain. On , 3 days ago, she stopped taking this medication due to the side effects. Today she felt shaky and had a "mental fogginess" that she is unable to explain. Took ibuprofen without any relief of her headache. She is scheduled to se Dr. Hills, oncologist, in several weeks. Denies numbness or weakness, fever, vomiting, dizziness or other pertinent symptoms. REVIEW OF SYSTEMS: Aside from elements discussed in the HPI, a comprehensive 10-point review of systems was reviewed and is negative. PMH: Chronic myelocytic leukemia, depression, obesity, hypothyroid SOCIAL HISTORY: , lives in [place], [facility] PHYSICAL EXAM: General:Patient is alert, obese, in no acute distress. ENT:Eyes are normal to inspection. ENT inspection normal. Neck: Normal inspection. Full range of motion. Respiratory:No respiratory distress. Breath sounds normal bilaterally. Cardiovascular: Regular rate and rhythm. Strong peripheral pulses. Normal cap refill. Abdomen:The abdomen is nontender to palpation. There are no peritoneal signs. There are normal bowel sounds. Back: Normal to inspection. No tenderness to palpation. Skin: Normal color. No rash. Warm and dry. Extremities: Normal appearance. Full range of motion. Neuro: Oriented x3. Normal motor function. Normal sensory function. No pronator drift. Normal cpvanq-ke-cyrl. ED Course: 185: Reassessed patient. She feels better after IVNS and Toradol. Neuro exam remains normal. She refuses CTH - she understands we cannot rule out CVA or other pathology without further testing. She is comfortable with plan of treatment with Reglan and Benadryl, despite potential interaction with Cymbalta. Return precautions provided. 1950: Patient feels much better, would like to go home. MDM: This patient presents with neurologic symptoms that she is unable to describe in any specific terms. Her detailed neuro exam is normal, and she appears alert and oriented. She has recently undergone a CTH and declines additional brain imaging at this time. Workup is negative. Patient feels much better after IVNS and medication. She would like to go home. She understands etiology of her symptoms is unknown and we discussed strict return precautions. Based on exam, I think CVA, meningitis, SAH, SDH all unlikely, but patient understands these and other diagnoses cannot be ruled out without further testing. - Data Points Laboratory Results: Laboratory Results 05/17/17 18:20 05/17/17 18:20 05/17/17 05/17/17 05/17/17 18:20 18:20 18:20 WBC 8.03 10^3/uL 10^3/uL (3.80-9.50) RBC 4.56 10^6/uL 10^6/uL (4.18-5.33) Hgb 15.1 g/dL g/dL (12.6-16.3) Hct 42.6 % % (38.0-47.0) MCV 93.4 fL fL (81.5-99.8) MCH 33.1 pg pg (27.9-34.1) MCHC 35.4 g/dL g/dL (32.4-36.7) RDW 13.5 % % (11.5-15.2) Plt Count 159 10^3/uL 10^3/uL (150-400) MPV 9.2 fL fL (8.7-11.7) Neut % (Auto) 60.5 % % (39.3-74.2) Lymph % (Auto) 31.4 % % (15.0-45.0) Bulloch % (Auto) 5.4 % % (4.5-13.0) Eos % (Auto) 1.7 % % (0.6-7.6) Baso % (Auto) 0.5 % % (0.3-1.7) Nucleat RBC Rel Count 0.0 % % (0.0-0.2) Absolute Neuts (auto) 4.86 10^3/uL 10^3/uL (1.70-6.50) Absolute Lymphs (auto) 2.52 10^3/uL 10^3/uL (1.00-3.00) Absolute Monos (auto) 0.43 10^3/uL 10^3/uL (0.30-0.80) Absolute Eos (auto) 0.14 10^3/uL 10^3/uL (0.03-0.40) Absolute Basos (auto) 0.04 10^3/uL 10^3/uL (0.02-0.10) Absolute Nucleated RBC 0.00 10^3/uL 10^3/uL (0-0.01) Immature Gran % 0.5 % % (0.0-1.1) Immature Gran # 0.04 10^3/uL 10^3/uL (0.00-0.10) Sodium 141 mEq/L mEq/L (134-144) Potassium 3.7 mEq/L mEq/L (3.5-5.2) Chloride 104 mEq/L mEq/L (97-110) Carbon Dioxide 25 mEq/l mEq/l (22-31) Anion Gap 12 mEq/L mEq/L (8-16) BUN 12 mg/dL mg/dL (7-23) Creatinine 0.7 mg/dL mg/dL (0.6-1.0) Estimated GFR > 60 Glucose 101 mg/dL H mg/dL (70-100) Calcium 9.0 mg/dL mg/dL (8.5-10.4) Beta HCG, Qual NEGATIVE Medications Given: Discontinued Medications Diphenhydramine HCl (Benadryl Injection) 25 mg IVP EDNOW ONE Stop: 05/17/17 18:55 Last Admin: 05/17/17 18:58 Dose: 25 mg Sodium Chloride (Ns) 1,000 mls @ 0 mls/hr IV ONCE ONE; Wide Open PRN Reason: Protocol Stop: 05/17/17 18:00 Last Admin: 05/17/17 18:18 Dose: 1,000 mls Ketorolac Tromethamine (Toradol) 30 mg IVP EDNOW ONE Stop: 05/17/17 18:01 Last Admin: 05/17/17 18:19 Dose: 30 mg Metoclopramide HCl (Reglan Injection) 10 mg IVP EDNOW ONE Stop: 05/17/17 18:55 Last Admin: 05/17/17 18:58 Dose: 10 mg General Time Seen by Provider: 05/17/17 17:48 Initial Vital Signs: Initial Vital Signs Temperature (C) 37.0 C 11/26/17 17:44 Heart Rate 88 05/17/17 17:44 Respiratory Rate 22 H 05/17/17 17:44 Blood Pressure 104/68 05/17/17 17:44 O2 Sat (%) 97 05/17/17 17:44 O2 Delivery Mode Room Air Allergies/Adverse Reactions: No Allergies [NKA] Allergy (Verified 06/12/13 09:41) Home Medications: Medication Instructions Recorded DULoxetine [Cymbalta 60 MG (*)] 60 mg PO DAILY06 04/30/12 Liothyronine Sodium [Cytomel 5 mcg 5 mcg PO DAILY06 04/30/12 (*)] Canagliflozin [Invokana] 100 mg PO DAILY 09/25/16 Levothyroxine [Synthroid 150 mcg 150 mcg PO DAILY06 09/25/16 (*)] Herbals/Supplements -Info Only 1 ea PO DAILY 01/11/17 Dasatinib [Sprycel] 70 mg PO DAILY #30 tablet 01/13/17 Furosemide [Lasix 20 MG (*)] 20 mg PO BID #60 tab 01/13/17 Departure - Departure Disposition: Home, Routine, Self-Care Clinical Impression: Headache, Altered mental status, CML (chronic myelocytic leukemia) Condition: Good Instructions: Acute Headache (ED) Additional Instructions: Follow-up with your primary care physician tomorrow if symptoms continue. Return to the emergency department immediately for fever, severe headache, numbness, weakness, difficulty walking, vision changes, confusion or other concerns. Referrals: DIAMANTE PARMAR [Other] - As per Instructions Report Scribed for: Aniurdh Doe Report Scribed by: Neli Cordoba Date of Report: 05/17/17 Time of Report: 17:49 Physician Review and Approval Statement: Portions of this note were transcribed by an ED scribe. I personally performed the history, physical exam, and medical decision making; and confirm the accuracy of the information in the transcribed note.
[2017-05-17] MEDS ORDERED: NS 1,000 ML IV ONE (17:59)
[2017-05-17] MEDS ORDERED: KETOROLAC 30 MG/1 ML SDV IVP ONE (18:00)
[2017-05-17 18:34] LABS: % IMMATURE GRANULYOCYTES 0.5 % (0.0-1.1); ABSOLUTE IMMATURE GRANULOCYTES 0.04 10^3/uL (0.00-0.10); ADD DIFF? NO; ADD MORPH? NO; ADD SCAN? NO; ATYPICAL LYMPHOCYTE FLAG 10 (0-99); FRAGMENT RBC FLAG 0 (0-99); HEMATOCRIT 42.6 % (38.0-47.0); HEMOGLOBIN 15.1 g/dL (12.6-16.3); LEFT SHIFT FLG 0 (0-99); LIPEMIA HEMOLYSIS FLAG 90 (0-99); MEAN CELL HEMOGLOBIN 33.1 pg (27.9-34.1); MEAN CELL HEMOGLOBIN CONCENTR. 35.4 g/dL (32.4-36.7); MEAN CELL VOLUME 93.4 fL (81.5-99.8); MEAN PLATELET VOLUME 9.2 fL (8.7-11.7); PLATELET CLUMPS FLAG 20 (0-99); PLATELET COUNT 159 10^3/uL (150-400); RED BLOOD CELL COUNT 4.56 10^6/uL (4.18-5.33); RED CELL DISTRIBUTION WIDTH 13.5 % (11.5-15.2)
[2017-05-17 18:46] LABS: ANION GAP 12 mEq/L (8-16); CARBON DIOXIDE 25 mEq/l (22-31); CHLORIDE 104 mEq/L (97-110); CREATININE 0.7 mg/dL (0.6-1.0); GLOMERULAR FILTRATION RATE > 60; GLUCOSE 101 mg/dL (70-100); POTASSIUM 3.7 mEq/L (3.5-5.2); SODIUM 141 mEq/L (134-144)
[2017-05-17] MEDS ORDERED: METOCLOPRAMIDE 10 MG/2 ML VIAL IVP ONE (18:54)
[2017-05-17 19:35] VITALS: BP 158/94; PULSE 82; RESP 16; TEMP 98.2
== END 2017-05-17 19:56 | disposition home or self-care (01) ==
PROC: 3E0337Z Introduction of Electrolytic and Water Balance Substance into Peripheral Vein, Percutaneous Approach (ICD-10-PCS; principal; 2017-05-17)
DX: C92.10 Chronic myeloid leukemia, BCR/ABL-positive, not having achieved remission (principal); R41.82 Altered mental status, unspecified; E86.9 Volume depletion, unspecified
CPT/HCPCS: 96374; J1200; J1885; J2765

== ENCOUNTER 2017-06-08 05:48 | Day surgery (SDC) | payer OTHER ==
[2017-06-08] MEDS ORDERED: LR 1,000 ML IV ONE (06:11)
[2017-06-08 06:34] VITALS: PULSE 93
[2017-06-08] MEDS ORDERED: PROPOFOL 200 MG/20 ML VIAL ONE ×3 (07:15→08:07)
[2017-06-08] MEDS ORDERED: PROPOFOL/EMULSION 500 MG/50 ML BOTTLE IV ONE (07:15)
[2017-06-08] MEDS ORDERED: NALOXONE HCL 0.4 MG/ML INJ IVP PRN (07:16)
[2017-06-08] MEDS ORDERED: ACETAMINOPHEN 500 MG TAB PO PRN (07:16)
[2017-06-08] MEDS ORDERED: ONDANSETRON 4 MG/2 ML VIAL IVP PRN (07:16)
[2017-06-08] MEDS ORDERED: fentaNYL 100 MCG/2 ML INJ IVP PRN (07:16)
[2017-06-08] MEDS ORDERED: ALBUTEROL 3 ML DEYVIAL IH PRN (07:16)
[2017-06-08] MEDS ORDERED: LIDOCAINE 2% 5 ML SDV ONE (07:18)
--- NOTE | 2017-06-08 07:18 | PDANEPAE ---
ANE History of Present Illness Colonoscopy ANE Past Medical History - Cardiovascular History Hx Hypertension: No Hx Arrhythmias: No Hx Chest Pain: No Hx Coronary Artery / Peripheral Vascular Disease: No Hx CHF / Valvular Disease: No Hx Palpitations: No Cardiovascular History Comment: denies chest pain,palp,early onset family hx - Pulmonary History Hx COPD: No Hx Asthma/Reactive Airway Disease: No Hx Recent Upper Respiratory Infection: No Hx Oxygen in Use at Home: No Hx Sleep Apnea: No Sleep Apnea Screening Result - Last Documented: Negative Pulmonary History Comment: denies sob up 2 flights - Neurologic History Hx Cerebrovascular Accident: No Hx Seizures: No Hx Dementia: No Neurologic History Comment: lumbar disc problems- disc reherniated s/p surgery- takes cymbalta - Endocrine History Hx Diabetes: No Endocrine History Comment: hypothyroid - Renal History Hx Renal Disorders: No - Liver History Hx Hepatic Disorders: No - Neurological & Psychiatric Hx Hx Neurological and Psychiatric Disorders: Yes Neurological / Psychiatric History Comment: depression/anxiety - Cancer History Hx Cancer: Yes Cancer History Comment: leukemia - Congenital Disorder History Hx Congenital Disorders: No - GI History Hx Gastrointestinal Disorders: Yes Gastrointestinal History Comment: Hemmorhoidectomy- still having bleeding, spasms. IBS. PREV COLONOSCOPY WITH BX - Other Health History Other Health History: none - Chronic Pain History Chronic Pain: No - Surgical History Prior Surgeries: COLONOSCOPY WITH BX 07/2013. HEMORRHOIDECTOMY. hysterectomy. microdiscectomy l4-5. r knee scope ANE Review of Systems Review of Systems: - Exercise capacity METS (RN): 4 METS ANE Patient History - Allergies Allergies/Adverse Reactions: No Allergies [NKA] Allergy (Verified 06/12/13 09:41) - Home Medications Home Medications: DULoxetine [Cymbalta 60 MG (*)] 60 mg PO DAILY06 04/30/12 [Last Taken 06/07/17 10:00] Liothyronine Sodium [Cytomel 5 mcg (*)] 5 mcg PO DAILY06 04/30/12 [Last Taken 10:00] Canagliflozin [Invokana] 100 mg PO DAILY 09/25/16 [Last Taken 06/07/17 10:00] Levothyroxine [Synthroid 150 mcg (*)] 150 mcg PO DAILY06 09/25/16 [Last Taken 10:00] Herbals/Supplements -Info Only 1 ea PO DAILY 01/11/17 [Last Taken 06/07/17 10:00 ] - NPO status NPO Since - Liquids (Date): 06/07/17 NPO Since - Liquids (Time): 23:00 NPO Since - Solids (Date): 06/06/17 NPO Since - Solids (Time): 19:00 - Smoking Hx Smoking Status: Never smoked - Family Anes Hx Family Hx Anesthesia Complications: none ANE Labs/Vital Signs - Vital Signs Blood Pressure: 116/86 Heart Rate: 93 Respiratory Rate: 18 O2 Sat (%): 94 Height: 170.18 cm Weight: 127.006 kg ANE Physical Exam - Airway Neck exam: FROM Mallampati Score: Class 2 Mouth exam: normal dental/mouth exam - Pulmonary Pulmonary: clear to auscultation - Cardiovascular Cardiovascular: regular rate and rhythym - ASA Status ASA Status: III ANE Anesthesia Plan Anesthesia Plan: GA with mask Total IV Anesthesia: Yes
--- NOTE | 2017-06-08 07:26 | PDHPUP ---
History & Physical Update H&P update statement: This history and physical update is based on an assessment of the patient which was completed after admission or registration (within 24 hours), but prior to the surgery/procedure. H&P update: H&P reviewed & patient examined, no change in patient's condition since H&P completed
[2017-06-08] MEDS ORDERED: fentaNYL 100 MCG/2 ML INJ ONE (07:50)
--- NOTE | 2017-06-08 08:20 | POSTANESTH ---
Post Anesthetic Evaluation Cardiovascular Status: Normal, Stable Respiratory Status: Normal, Stable Level of Consciousness/Mental Status: Can Participate in Eval, Mildly Sleepy, Arousable Pain Control: Adequate, Prn Tx Ordered Nausea/Vomiting Control: Adequate, Prn Tx Ordered Complications Possibly Related to Anesthesia: None Noted
--- NOTE | 2017-06-08 08:53 | POSTOPPROG ---
Post Op Note Date of Operation: 06/08/17 Surgeon: Ramesh Avendano Anesthesiologist: Dr. Elliott Anesthesia: GET(General Endotracheal) Pre-op Diagnosis: Colon polyp Post-op Diagnosis: Same Procedure: Colonoscopy with biopsy Findings: 70cm polyp - removed en total Inf/Abcess present in the surg proc area at time of surgery?: No EBL: Minimal Specimen(s): 70cm polyp base
[2017-06-08 09:04] VITALS: RESP 20
[2017-06-08 09:14] VITALS: TEMP 97.3
[2017-06-08 09:18] VITALS: BP 116/73
[2017-06-08 09:58] VITALS: O2SAT 94
--- NOTE | 2017-06-08 18:00 | GOP ---
[f rep st] OPERATIVE REPORT DATE OF OPERATION: 06/08/2017 SURGEON: Ramesh Avendano MD ANESTHESIA: IV general. ANESTHESIOLOGIST: Dr. Matt Elliott. PREOPERATIVE DIAGNOSIS: Colon polyp. POSTOPERATIVE DIAGNOSIS: Colon polyp. PROCEDURE PERFORMED: Colonoscopy with biopsy. FINDINGS: 70 cm, a polyp, base completely removed with cold biopsy forceps. INDICATIONS: 41-year-old female with a history of adenomatous colon polyps. She is undergoing a followup colonoscopy this year. DESCRIPTION OF PROCEDURE: IV general anesthetic was induced. The patient was placed in left lateral decubitus position. Digital anal exam disclosed no intrarectal masses. The colonoscope was inserted to the appendix, as evidenced by the terminal ileal folds and appendiceal orifice. The prep was of good quality. The scope was slowly withdrawn. The ascending colon as well as hepatic flexure appeared normal. The transverse colon appeared normal, where prior large adenomatous polyps had been removed on a prior scope. At 70 cm was a small sessile polyp. This was removed using a snare. The polyp was inadvertently misplaced; despite followup suctioning and scope irrigation, it was not identified within the trap. The base of it was removed with a cold forceps in its entirety, leaving no residual polyp left behind. These segments were sent for permanent sectioning. The scope was further withdrawn, showing normal remaining descending colon as well as rectosigmoid colon. On retroflexion, there were no internal hemorrhoids with a normal dentate line. The scope was withdrawn uneventfully, and the patient taken to recovery in good condition. /[id number]/MODL MTDD
== END 2017-06-08 09:58 | disposition home or self-care (01) ==
LOC: FSGY 05:48
PROVIDERS: ATTEND Surgery
PROC: 0DJD8ZZ Inspection of Lower Intestinal Tract, Via Natural or Artificial Opening Endoscopic (ICD-10-PCS; principal; 2017-06-08 07:30)
PROC: 0DBL8ZX Excision of Transverse Colon, Via Natural or Artificial Opening Endoscopic, Diagnostic (ICD-10-PCS; principal; 2017-06-08 07:30)
DX: D12.3 Benign neoplasm of transverse colon (principal); C92.Z0 Other myeloid leukemia not having achieved remission; Z86.010 Personal history of colon polyps; E03.9 Hypothyroidism, unspecified
CPT/HCPCS: J2704; J3010

== ENCOUNTER 2017-12-01 11:00 | Day surgery (SDC) | payer OTHER ==
[2017-12-01] MEDS ORDERED: LIDOCAINE 1% 300 MG/30 ML SDV ONE (15:27)
[2017-12-01] MEDS ORDERED: BUPIVACAINE 0.25% 30 ML SDV ONE (15:28)
[2017-12-01] MEDS ORDERED: IOTHALAMATE MEG (CONRAY) 50 ML VIAL IV ONE (15:28)
[2017-12-01] MEDS ORDERED: MIDAZOLAM 2 MG/2 ML VIAL ONE (16:46)
[2017-12-01] MEDS ORDERED: PROPOFOL 200 MG/20 ML VIAL ONE (16:47)
[2017-12-01] MEDS ORDERED: fentaNYL 100 MCG/2 ML INJ ONE ×4 (16:47→19:35)
[2017-12-01] MEDS ORDERED: ONDANSETRON 4 MG/2 ML VIAL ONE ×2 (16:49→20:01)
[2017-12-01] MEDS ORDERED: DEXAMETHASONE 4 MG/ML VIAL ONE (16:49)
[2017-12-01] MEDS ORDERED: ROCURONIUM 100 MG/10 ML VIAL ONE (16:49)
[2017-12-01] MEDS ORDERED: LIDOCAINE 2% 5 ML SDV ONE (16:49)
[2017-12-01] MEDS ORDERED: BUPIVACAINE/EPI 0.5% 30 ML SDV ONE (17:35)
[2017-12-01] MEDS ORDERED: SUGAMMADEX SODIUM 200 MG/2 ML VIAL IVP ONE (19:07)
[2017-12-01] MEDS ORDERED: METOCLOPRAMIDE 10 MG/2 ML VIAL ONE (19:23)
[2017-12-01] MEDS ORDERED: KETOROLAC 30 MG/1 ML SDV ONE (19:53)
[2017-12-01] MEDS ORDERED: HYDROmorphONE/DILAUDID 1 MG/ML INJ ONE (20:18)
[2017-12-01] MEDS ORDERED: ONDANSETRON 4 MG/2 ML VIAL IVP PRN (20:54)
[2017-12-01] MEDS ORDERED: KETOROLAC 30 MG/1 ML SDV IVP ONE (20:54)
[2017-12-01] MEDS ORDERED: HYDROmorphONE/DILAUDID 2 MG TAB ONE (20:54)
[2017-12-01] MEDS ORDERED: HYDROmorphONE/DILAUDID 2 MG TAB PO PRN (20:54)
[2017-12-01] MEDS ORDERED: HYDROmorphONE/DILAUDID 1 MG/ML INJ IVP PRN (20:54)
--- NOTE | 2017-12-02 07:54 | GOP ---
[f rep st] OPERATIVE REPORT DATE OF OPERATION: 12/01/2017 SURGEON: Dayton Burk MD SENIOR QUALITATIVE RESEARCHER: Dayna Allison PA-C. Use of Physician Welding Machine Operator Submerged Arc is standard and necessary for the safety o f the case. ANESTHESIA: General endotracheal anesthesia. ANESTHESIOLOGIST: Dr. Willie Gallo. PREOPERATIVE DIAGNOSIS: Acute cholecystitis. POSTOPERATIVE DIAGNOSIS: Acute cholecystitis. PROCEDURE PERFORMED: Laparoscopic cholecystectomy with cholangiogram. FINDINGS: INDICATIONS: A 42-year-old patient with a known history of gallstone disease was seen in [facility] the last week with elevated transaminases and acute abdominal pain. Ultrasound suggests cholecys titis with thick gallbladder wall. After risks, benefits, and alternatives of surgery were outlined with the patient, she has consented to proceed. DESCRIPTION OF PROCEDURE: The procedure is as follows: The patient was brought into the operating r oom. After induction of endotracheal anesthesia in a supine position, her abdomen was prepped with c hlorhexidine and draped sterilely. Time-out procedure was then performed according to institutional standards. Local anesthetic with 0.5% Marcaine with epinephrine are infused in skin and subcutaneous tissues, and the trocar site is done supraumbilically in an open fashion. The abdomen was insufflat ed to 15 TOR with carbon dioxide. Working trocars were placed in the subxiphoid and right subcostal areas under direct visualization. Right tilted reverse Trendelenburg positions are used to facilitat e dissection. A lateral placed gallbladder is noted, which is somewhat intrahepatic. The cystic jose t and cystic artery are identified in the triangle of Calot, and the artery was triply clipped and li gated. The gallbladder is attached by the cystic duct. This is clipped once distally. Ductotomy is then created. A cholangiocatheter was placed through a separate stab incision into the duct, and a cholangiogram was performed under fluoroscopy. There was good filling of the intra and extrahepatic biliary tree with easy spillage of the bile into the duodenum. There are no filling defects that are noted, and on completion of the cholangiogram without any noted anatomic or acquired defects the cho langiogram is completed. The catheter is removed. The cystic duct is clipped twice proximally and t hen divided sharply. The gallbladder was taken off an intrahepatic gallbladder position using electr ocautery. Hemostasis was assured. Kalpana is used for the gallbladder bed at the end of the procedur e. Aspiration irrigation was done till clear. The gallbladder was placed in the Endopouch and broug ht out through the umbilical incision. After insuring hemostasis, all trocars were removed. The abd omen was deflated; 0 Vicryl was used to reapproximate the fascia, which had to be widened in order to accommodate the size of the stones. The skin was then reapproximated in single layers using 4-0 Mon ocryl. Dermabond is applied. The patient awakened, extubated, taken to recovery room in stable cond ition. No immediate complications. /[id number]/MODL
== END 2017-12-01 21:30 | disposition home or self-care (01) ==
LOC: FSGY 11:00
PROVIDERS: ATTEND Surgery
PROC: 0FJB4ZZ Inspection of Hepatobiliary Duct, Percutaneous Endoscopic Approach (ICD-10-PCS; principal; 2017-12-01 17:00)
PROC: 0FT44ZZ Resection of Gallbladder, Percutaneous Endoscopic Approach (ICD-10-PCS; principal; 2017-12-01 17:00)
PROC: BF101ZZ Fluoroscopy of Bile Ducts using Low Osmolar Contrast (ICD-10-PCS; 2017-12-01 17:00)
DX: K81.0 Acute cholecystitis (principal)
CPT/HCPCS: J1100; J1170; J1885; J2250; J2405; J2704; J2765; J3010; Q9961